=== PATIENT | female | born 1980 | race Caucasian/White ===

== ENCOUNTER 2017-02-26 12:00 | Emergency (ER) | payer OTHER ==
[~2017-02-26] VITALS: Ht 165.1 cm; Wt 138.3 kg
[2017-02-26 12:03] VITALS: Ht 165.1 cm; Wt 138.3 kg
--- NOTE | 2017-02-26 12:55 | ERD ---
ER Documentation Chief Complaint Chief Complaint HEAVY MENSES SEND FOR LAB WORK UP HPI 37y/o female patient with history of poly-menorrhagia, presents to the emergency department with mother referred by her primary doctor for labs and according to the mother iron infusion. The patient complains of a heavy periods for more than 2 years that lasts more than a week and uses more than 12 pads per day. She is not taking any medications at this time, the patient is a Jehovah witness and she refuses blood transfusions. Today she is complaining of mild weakness and palpitations on exertion. Denies dizziness, chest pain, shortness of breath. The vaginal bleeding stopped 2 days ago. Denies fever, chills, N/V/D. Treatment attempted: None. Previous evaluation: None. History was given by mother and patient. ROS SYSTEMIC symptoms: no fever, chills, no night sweats, no weight loss EYE symptoms: No blurred vision, no eye discharge OTOLARYNGEAL symptoms: No hearing loss. No ear pain, no sore throat CARDIOVASCULAR symptoms: No chest pain or discomfort, no palpitations. PULMONARY symptoms: No dyspnea, no cough, no wheezing. GASTROINTESTINAL symptoms: No abdominal pain, no nausea, no vomiting, no diarrhea MUSCULOSKELETAL symptoms: No arthralgias, no muscle aches. NEUROLOGY symptoms: No confusion, no syncope, no numbness or tingling. SKIN: No rashes Medications Home Meds Active Scripts Docusate Sodium* (Colace*) 100 Mg Capsule, 100 MG PO BID Y for CONSTIPATION, # 60 CAP Prov:ALYSE BROWN MD 02/26/17 Ferrous Sulfate* (Ferrous Sulfate*) 325 Mg Tabec, 325 MG PO TID for 30 Days, # 90 TAB Prov:ALYSE BROWN MD 02/26/17 Allergies Allergies: Coded Allergies: No Known Allergy (Unverified , 02/26/17) Physical Exam Vitals Vital Signs Date Time Temp Pulse Resp B/P Pulse Ox O2 Delivery O2 Flow Rate FiO2 02/26/17 12:03 100.2 96 18 142/67 100 Physical Exam Patient is in no acute distress, morbidly obese, vital signs stable. Alert and fully oriented. EYES: PERRLA, EOMI, Sclera and conjunctiva appear normal. EARS: Canals clear, tympanic membranes WNL THROAT: Normal oropharynx. NECK: Supple, No lymphadenopathy. Full ROM without pain or tenderness. HEART: RRR, no rubs, murmurs, clicks or gallops. LUNGS: Clear to auscultation. ABDOMEN: Soft, non-tender without masses or hepatosplenomegaly. EXTREMITIES: No edema bilaterally. BACK: Full ROM, no deformity, normal back exam NEURO: Cranial nerves grossly intact, no motor or sensory deficit Result Diagram: 02/26/17 1335 02/26/17 1335 Results 24 hrs Laboratory Tests Test 02/26/17 13:33 02/26/17 13:35 Urine Color YELLOW Urine Clarity SLIGHTLY CLOUDY Urine pH 6.0 Urine Specific [place] 1.018 Urine Ketones NEGATIVEmg/dL Urine Nitrite NEGATIVEmg/dL Urine Bilirubin NEGATIVEmg/dL Urine Urobilinogen 1+mg/dL Urine Leukocyte Esterase 1+Yoni/ul Urine Microscopic RBC 3/HPF Urine Microscopic WBC 21/HPF Urine Squamous Epithelial Cells MODERATE/HPF Urine Mucus FEW/HPF Urine Hemoglobin 2+mg/dL Urine Glucose NEGATIVEmg/dL Urine Total Protein NEGATIVEmg/dl Urine Test NEGATIVE White Blood Count 6.910^3/ul Red Blood Count 2.9910^6/ul Hemoglobin 6.7g/dl Hematocrit 22.3% Mean Corpuscular Volume 74.6fl Mean Corpuscular Hemoglobin 22.4pg Mean Corpuscular Hemoglobin Concent 30.0g/dl Red Cell Distribution Width 17.3% Platelet Count 29233^3/UL Mean Platelet Volume 10.3fl Neutrophils % % Segmented Neutrophils % (Manual) 80% Band Neutrophils % (Manual) 1% Lymphocytes % % Lymphocytes % (Manual) 17% Monocytes % % Monocytes % (Manual) 1% Eosinophils % % Eosinophils % (Manual) 1% Basophils % % Nucleated Red Blood Cells % 1.0/100WBC Neutrophils # 10^3/ul Neutrophils # (Manual) 5.510^3/ul Band Neutrophils # 0.010^3/ul Absolute Lymphocytes (Manual) 1.110^3/ul Lymphocytes # 10^3/ul Monocytes # 10^3/ul Absolute Monocytes (Manual) 0.010^3/ul Eosinophils # 10^3/ul Basophils # 10^3/ul Nucleated Red Blood Cells # 10^3/ul Platelet Estimate NORMAL Polychromasia 1+ Poikilocytosis 1+ Anisocytosis 2+ Microcytosis 2+ Sodium Level 142mmol/L Potassium Level 3.8mmol/L Chloride Level 105mmol/L Carbon Dioxide Level 27mmol/L Anion Gap 14 Blood Urea Nitrogen 11mg/dl Creatinine 0.90mg/dl Glucose Level 153mg/dl Calcium Level 8.9mg/dl Total Bilirubin 0.3mg/dl Direct Bilirubin 0.00mg/dl Indirect Bilirubin 0.3mg/dl Aspartate Amino Transf (AST/SGOT) 31IU/L Alanine Aminotransferase (ALT/SGPT) 48IU/L Alkaline Phosphatase 71IU/L Total Protein 7.1g/dl Albumin 3.8g/dl Globulin 3.30g/dl Albumin/Globulin Ratio 1.15 Current Medications Medications (Trade) Dose Ordered Sig/Chanel Route PRN Reason Start Time Stop Time Status Last Admin Dose Admin Lactated Ringer's 1,000 ml @ 1,000 mls/hr Q1H ONCE IV 02/26/17 13:00 02/26/17 13:59 DC 02/26/17 13:57 Ceftriaxone Sodium (Rocephin) 50 ml @ 100 mls/hr ONCE ONCE IVPB 02/26/17 15:00 02/26/17 15:29 DC 02/26/17 15:08 [place] [id number] Radiology Main Line: [phone] DIAGNOSTIC IMAGING REPORT Patient: EMILEE STODDARD : 1980 Age: 37 Sex: F MR #: [id number] DOS: 02/26/17 1255 Ordering MD: ALYSE BROWN MD Location: [facility] Room/Bed: PROCEDURE: US Pelvis. CLINICAL INDICATION: vaginal bleeding TECHNIQUE: Multiple sonographic images of the pelvis were obtained utilizing a transabdominal technique. The images were reviewed on a PACS workstation. No endovaginal study was performed. COMPARISON: None. FINDINGS: The study is limited due to the patient's body habitus and lack of endovaginal exam. The uterus is normal in size and demonstrates a normal appearance of the myometrium. The uterus measures 7.1 x 4.4 x 5.7 cm. The endometrial stripe is homogeneous in appearance and has the thickness of 7 mm. No intrauterine gestation is noted. The ovaries are normal in size and echogenicity. Normal Doppler flow is identified in both ovaries. The right ovary measures 3.1 x 1.7 x 1.9 cm. The left ovary measures 2.8 x 1.5 x 1.7 cm. No free fluid is present within the pelvis.. RPTAT: AA IMPRESSION: No intrauterine gestation visualized. Normal appearance of the transabdominal pelvic ultrasound. If there is a positive test, differential diagnosis includes early , missed or ectopic . .Jeronimo Hester MD, MD Date Time Electronically viewed and signed by .Jeronimo Hester MD, MD on 02/26/2017 16: 24 .S/ CC: ALYSE BROWN MD Procedures/MDM 37y/o female patient with a long-standing history of heavy menses, presents to the ED referred by her primary doctor for blood work and iron infusion, the patient is [employer] and she refused blood transfusion. Vital signs stable, patient hemodynamically stable, physical exam unremarkable. Differential diagnosis include but not limited to: Iron deficiency anemia, dysfunctional uterine bleeding, uterine fibroids. Pertinent Data: Labs: CBC: Hemoglobin 6.7. CMP: normal kidney and liver function, normal electrolytes. UA: Showed pyuria with 2+ leukocyte esterase Radiology: Pelvic transabdominal ultrasound: No intrauterine gestation visualized. Normal appearance of the transabdominal pelvic ultrasound. If there is a positive test, differential diagnosis includes early , missed or ectopic . Physical examination and clinical presentation consistent most likely with Menorrhagia, chronic anemia, UTI. During the ED course the patient remained Hemodynamically stable, no new complaints. received treatment with IV fluids and Rocephin IV presenting overall improvement of the symptoms. Results and clinical impression discussed with Mother And patient who agree with management. The patient is stable to be treated outpatient and will be discharged home with a Rx for Iron and Colace Side effects of prescribed medications (headache, rash, nausea, vomiting, diarrhea) were reviewed. The patient was instructed to follow up with the primary care provider in the next 48h. If symptoms persist, worsen or new symptoms develop, then patient should return to the ED immediately. Instructions explained and given to patient in Sami with acknowledgment and demonstrated understanding. Disclaimer: Inadvertent spelling and grammatical errors are likely due to EHR/ dictation software use and do not reflect on the overall quality of patient care. Also, please note that the electronic time recorded on this note does not necessarily reflect the actual time of the patient encounter. Departure Diagnosis: Primary Impression: Menorrhagia with irregular cycle Additional Impressions: Chronic anemia Refusal of blood transfusions as patient is [employer] UTI (urinary tract infection) Condition: Stable Additional Instructions: Call your primary care doctor TOMORROW for an appointment during the next 1-2 days. See the doctor sooner or return here if your condition worsens before your appointment time. Thank you very much for allowing us to participate in your care. Your health and safety is our top priority at [facility]. Have prescriptions filled and follow precisely the directions on the label. Follow-up with primary care provider during the next 4 days and bring all the information and medications prescribed. If illness has not improved in 2 days, then make an appointment with primary care provider. If the provider is unavailable, return to the Emergency Department immediately. ALYSE BROWN MD Feb 26, 2017 12:55
[2017-02-26] MEDS ORDERED: LACTATED RINGER'S 1,000 ML IV ONE (13:00)
[2017-02-26 14:02] LABS: ABNORMAL IP MESSAGE 1; HEMATOCRIT 22.3 % (37.0-47.0); MEAN CORPUSCULAR HEMOGLOBIN 22.4 pg (29.0-33.0); MEAN CORPUSCULAR VOLUME 74.6 fl (82.0-101.0); MEAN PLATELET VOLUME 10.3 fl (7.4-10.4); PLATELET COUNT 331 10^3/UL (140-415); RED BLOOD COUNT 2.99 10^6/ul (4.20-5.40); RED CELL DISTRIBUTION WIDTH 17.3 % (11.5-14.5); WHITE BLOOD COUNT 6.9 10^3/ul (4.8-10.8)
[2017-02-26 14:02] LABS: ADD UMIC YES; UR ASCORBIC ACID NEGATIVE (NEGATIVE); UR BILIRUBIN (Dip) NEGATIVE (NEGATIVE); UR BLOOD (Dip) 2+ mg/dL (NEGATIVE); UR CLARITY SLIGHTLY CLOUDY (CLEAR); UR COLOR YELLOW (YELLOW); UR GLUCOSE (Dip) NEGATIVE (NEGATIVE); UR KETONES (Dip) NEGATIVE (NEGATIVE); UR LEUKOCYTE ESTERASE (Dip) 1+ Leu/ul (NEGATIVE); UR MUCUS FEW /HPF (NONE SEEN); UR NITRITE (Dip) NEGATIVE (NEGATIVE); UR RBC 3 /HPF (0-5); UR SPECIFIC GRAVITY (Dip) 1.018 (1.003-1.030); UR SQUAMOUS EPITHELIAL CELL MODERATE /HPF (FEW); UR TOTAL PROTEIN (Dip) NEGATIVE (NEGATIVE); UR UROBILINOGEN (Dip) 1+ mg/dL (NEGATIVE)
[2017-02-26 14:12] LABS: POSITIVE DIFF @See below
[2017-02-26 14:16] LABS: HEMOGLOBIN 6.7 g/dl (12.0-16.0)
[2017-02-26 14:28] LABS: ALBUMIN 3.8 g/dl (3.3-4.9); ALBUMIN/GLOBULIN RATIO 1.15; BILIRUBIN,INDIRECT 0.3 mg/dl (0-1.1); BILIRUBIN,TOTAL 0.3 mg/dl (0.2-1.3); CALCIUM 8.9 mg/dl (8.4-10.2); CREATININE 0.9 mg/dl (0.44-1.00); POTASSIUM 3.8 mmol/L (3.5-5.1); TOTAL PROTEIN 7.1 g/dl (6.1-8.1)
[2017-02-26 14:51] LABS: ANISOCYTOSIS 2+ (0-0); EOSINOPHILS % (M) 1 % (0-7); MICROCYTOSIS 2+ (0-0); MONOCYTES % (M) 1 % (0-11); PLATELET ESTIMATE NORMAL; POIKILOCYTOSIS 1+ (0-0); POLYCHROMASIA 1+ (0-0)
[2017-02-26] MEDS ORDERED: CEFTRIAXONE 1 GM/50 ML (PMX) 50 ML IVPB ONE (15:00)
--- NOTE | 2017-02-26 16:24 | RADRPT ---
PROCEDURE: US Pelvis. CLINICAL INDICATION: vaginal bleeding TECHNIQUE: Multiple sonographic images of the pelvis were obtained utilizing a transabdominal tech nique. The images were reviewed on a PACS workstation. No endovaginal study was performed. COMPARISON: None. FINDINGS: The study is limited due to the patient's body habitus and lack of endovaginal exam. The uterus is normal in size and demonstrates a normal appearance of the myometrium. The uterus henrietta ures 7.1 x 4.4 x 5.7 cm. The endometrial stripe is homogeneous in appearance and has the thickness o f 7 mm. No intrauterine gestation is noted. The ovaries are normal in size and echogenicity. Normal Doppler flow is identified in both ovaries. The right ovary measures 3.1 x 1.7 x 1.9 cm. The left ovary measures 2.8 x 1.5 x 1.7 cm. No free fluid is present within the pelvis.. RPTAT: AA IMPRESSION: No intrauterine gestation visualized. Normal appearance of the transabdominal pelvic ultrasound. If there is a positive test, differential diagnosis includes early , missed abort ion or ectopic . .Jeronimo Hester MD, Date Time Electronically viewed and signed by .Jeronimo Hester MD, MD on 02/26/2017 16:24 .S/
[2017-02-26] MEDS ORDERED: DOCU-144 PO (16:58)
[2017-02-26] MEDS ORDERED: FER325 PO (16:58)
[2017-02-26 17:21] VITALS: BP 190/100; PULSE 80; RESP 17; TEMP 98.2
== END 2017-02-26 17:22 | disposition home or self-care (01) ==
LOC: FTE 12:00
DX: N92.0 Excessive and frequent menstruation with regular cycle (principal); D64.9 Anemia, unspecified; N39.0 Urinary tract infection, site not specified; R10.2 Pelvic and perineal pain
CPT/HCPCS: 36415; 76856; 80053; 81001; 84703; 85025; 86900; 86901; 96374; J0696; J7120; Z7502

== ENCOUNTER 2018-10-27 06:04 | Emergency (ER) | payer OTHER ==
[~2018-10-27] VITALS: Ht 165.1 cm; Wt 126.9 kg
[~2018-10-27 06:04] MED LIST: DOCU-144 PO; FER325 PO; ONDA4TAB14 PO
[2018-10-27 06:11] VITALS: BP 203/90; PULSE 80; RESP 20; Ht 165.1 cm; Wt 126.9 kg
[2018-10-27] MEDS ORDERED: ONDANSETRON (ODT) 4 MG TAB ODT STA (07:10)
--- NOTE | 2018-10-27 09:34 | ERD ---
ER Documentation Chief Complaint Chief Complaint N/V X1WK HPI Patient is a 38-year-old female with no medical problems who presents with vomiting. The patient was vomiting food and fluid for the past 1 week. The patient has no pain in that she is vomiting. The patient complained of subjective fevers and chills but has not taken her temperature. She has diarrhea as well. She has not called her primary doctor as of yet. Her primary doctor is Dr. Olivera. Upon review of old medical record the patient one previous visit to the ER in 2017. ROS All systems reviewed and are negative except as per history of present illness. Medications Home Meds Active Scripts Ondansetron (Ondansetron Odt) 4 Mg Tab.rapdis, 4 MG PO Q6H PRN for NAUSEA AND/OR VOMITING, #10 TAB Prov:GRACE COREAS MD 10/27/18 Docusate Sodium* (Colace*) 100 Mg Capsule, 100 MG PO BID PRN for CONSTIPATION, #60 CAP Prov:ALYSE BROWN MD 02/26/17 Ferrous Sulfate* (Ferrous Sulfate*) 325 Mg Tabec, 325 MG PO TID for 30 Days, #90 TAB Prov:ALYSE BROWN MD 02/26/17 Allergies Allergies: Coded Allergies: No Known Allergy (Unverified , 02/26/17) PMhx/Soc Medical and Surgical Hx: pt denies Surgical Hx History of Surgery: No Anesthesia Reaction: No Hx Neurological Disorder: No Hx Respiratory Disorders: Yes (Asthma) Hx Cardiac Disorders: No Hx Psychiatric Problems: No Hx Miscellaneous Medical Probl: Yes (Jehovas witness-refuses bloodtransfusion) Hx Alcohol Use: No Hx Substance Use: No Hx Tobacco Use: No Smoking Status: Never smoker FmHx Family History: diabetes Physical Exam Vitals Vital Signs Date Temp Pulse Resp B/P (MAP) Pulse Ox O2 O2 Flow FiO2 Time Delivery Rate 10/27/18 98.5 80 20 203/90 98 06:11 (127) Physical Exam Const: No acute distress Head: Atraumatic Eyes: Normal Conjunctiva ENT: Normal External Ears, Nose and Mouth. Neck: Full range of motion. No meningismus. Resp: Clear to auscultation bilaterally Cardio: Regular rate and rhythm, no murmurs Abd: Soft, non tender, non distended. Normal bowel sounds Skin: No petechiae or rashes Back: No midline or flank tenderness Ext: No cyanosis, or edema Neur: Awake and alert Psych: Normal Mood and Affect Results 24 hrs Laboratory Tests Test 10/27/18 07:24 POC Beta HCG, Qualitative NEGATIVE Current Medications Medications Dose Sig/Chanel Start Time Status Last (Trade) Ordered Route PRN Stop Time Admin Dose Reason Admin Ondansetron 4 mg ONCE STAT 10/27/18 DC 10/27/18 HCl (Zofran ODT 07:10 07:22 Odt) 10/27/18 07:11 Procedures/MDM Patient is a 38-year-old female who presents with vomiting and diarrhea. I believe her symptoms are likely viral in nature. Urine test is negative and I doubt or ectopic . Her blood pressure was elevated and she will need repeat blood pressure evaluation by her primary doctor. I told her she needs a follow-up within the next 1 to 2 days for ree valuation by her primary doctor. At this point I doubt appendicitis, cholecystitis, pancreatitis, or bowel obstruction. However the patient will need close follow-up. She will be given a prescription for Zofran for symptomatic relief. Departure Diagnosis: Primary Impression: HTN (hypertension) Hypertension type: essential hypertension Qualified Codes: I10 - Essential (primary) hypertension Additional Impression: Nausea and vomiting Vomiting type: unspecified Vomiting Intractability: unspecified Qualified Codes: R11.2 - Nausea with vomiting, unspecified Condition: Fair Patient Instructions: High Blood Pressure (Hypertension), Nausea and Vomiting- Adult Referrals: Dr. Olivera Additional Instructions: Call your primary care doctor TOMORROW for an appointment during the next 1-2 days.See the doctor sooner or return here if your condition worsens before your appointment time. GRACE COREAS MD Oct 27, 2018 09:34
== END 2018-10-27 07:51 | disposition home or self-care (01) ==
LOC: FTE 06:04
DX: I10 Essential (primary) hypertension (principal); J45.909 Unspecified asthma, uncomplicated
CPT/HCPCS: 81025; Z7610; 99283